=== PATIENT | male | born 1975 | race Caucasian/White ===

== ENCOUNTER 2020-09-15 13:57 | Emergency (ER) | payer MEDICAID ==
[~2020-09-15] VITALS: Ht 175.3 cm; Wt 69.2 kg
[2020-09-15 14:08] VITALS: BP 149/92
[2020-09-15] MEDS ORDERED: PENI500T2 PO (14:54)
[2020-09-16] MEDS ORDERED: NAPR-56 PO (02:30)
== END 2020-09-15 15:56 | disposition home or self-care (01) ==
LOC: ER 13:58
DX: K04.7 Periapical abscess without sinus (principal); K08.89 Other specified disorders of teeth and supporting structures; Z88.8 Allergy status to other drugs, medicaments and biological substances; Z79.2 Long term (current) use of antibiotics
CPT/HCPCS: 99283

== ENCOUNTER 2020-09-16 01:11 | Emergency (ER) | payer MEDICAID ==
[~2020-09-16] VITALS: Ht 190.5 cm; Wt 72.7 kg
[~2020-09-16 01:11] MED LIST: PENI500T2 PO
[2020-09-16] MEDS ORDERED: NAPR-56 PO (02:30)
[2020-09-16] MEDS ORDERED: naproxen 500mg tablet PO ONE (02:40)
[2020-09-16] MEDS ORDERED: amox tr/potassium clavulanate 875/125mg TAB PO ONE (02:40)
[2020-09-16 02:50] VITALS: BP 136/108
== END 2020-09-16 02:51 | disposition home or self-care (01) ==
LOC: ER 01:12
DX: K04.7 Periapical abscess without sinus (principal); K08.89 Other specified disorders of teeth and supporting structures; F17.200 Nicotine dependence, unspecified, uncomplicated; Z76.0 Encounter for issue of repeat prescription; Z88.8 Allergy status to other drugs, medicaments and biological substances; Z79.2 Long term (current) use of antibiotics; Z79.899 Other long term (current) drug therapy
CPT/HCPCS: 99283

== ENCOUNTER 2020-09-19 04:55 | Emergency (ER) | payer MEDICAID, OTHER ==
[~2020-09-19] VITALS: Ht 175.3 cm; Wt 68.0 kg
[~2020-09-19 04:55] MED LIST changes: +NAPR-56 PO
[2020-09-19] MEDS ORDERED: buprenorphine/naloxone 8MG-2MG SUBlingual film SL ONE (05:25)
[2020-09-19 05:49] VITALS: BP 157/77
[2020-09-19] MEDS ORDERED: buprenorphine/naloxone 8MG-2MG SUBlingual film SL SCH (08:00)
== END 2020-09-19 05:59 | disposition home or self-care (01) ==
LOC: ER 04:55
DX: G89.29 Other chronic pain (principal); Z76.0 Encounter for issue of repeat prescription; Z79.2 Long term (current) use of antibiotics; Z79.899 Other long term (current) drug therapy; Z88.8 Allergy status to other drugs, medicaments and biological substances
CPT/HCPCS: 99283

== ENCOUNTER 2020-09-20 02:06 | Emergency (ER) | payer MEDICAID, OTHER ==
[~2020-09-20] VITALS: Ht 175.3 cm; Wt 68.0 kg
[2020-09-20] MEDS ORDERED: buprenorphine/naloxone 8MG-2MG SUBlingual film SL ONE (02:35)
[2020-09-20 02:47] VITALS: BP 159/98
== END 2020-09-20 02:50 | disposition home or self-care (01) ==
LOC: ER 02:07
DX: R07.89 Other chest pain (principal); G89.29 Other chronic pain; F17.200 Nicotine dependence, unspecified, uncomplicated; Z76.0 Encounter for issue of repeat prescription; Z86.19 Personal history of other infectious and parasitic diseases; Z88.8 Allergy status to other drugs, medicaments and biological substances; Z79.2 Long term (current) use of antibiotics; Z79.899 Other long term (current) drug therapy
CPT/HCPCS: 93005; 99283

== ENCOUNTER 2020-09-21 04:47 | Emergency (ER) | payer MEDICAID ==
[~2020-09-21] VITALS: Ht 175.3 cm; Wt 70.0 kg
[2020-09-21] MEDS ORDERED: buprenorphine/naloxone 8MG-2MG SUBlingual film SL ONE ×2 (05:25→05:35)
[2020-09-21] MEDS ORDERED: buprenorphine/naloxone 8MG-2MG SUBlingual film SL SCH (05:25)
[2020-09-21 05:40] VITALS: BP 160/104
[2020-09-22] MEDS ORDERED: CEPH250T PO (02:56)
[2020-09-22] MEDS ORDERED: PENI250T2 PO (03:11)
== END 2020-09-21 05:44 | disposition home or self-care (01) ==
LOC: ER 04:48
DX: F19.239 Other psychoactive substance dependence with withdrawal, unspecified (principal); G89.29 Other chronic pain; Z76.0 Encounter for issue of repeat prescription; Z86.19 Personal history of other infectious and parasitic diseases; Z88.8 Allergy status to other drugs, medicaments and biological substances; Z79.2 Long term (current) use of antibiotics; Z79.899 Other long term (current) drug therapy
CPT/HCPCS: 99283

== ENCOUNTER 2020-09-22 02:41 | Emergency (ER) | payer MEDICAID ==
[~2020-09-22] VITALS: Ht 175.3 cm; Wt 55.4 kg
[2020-09-22] MEDS ORDERED: CEPH250T PO (02:56)
[2020-09-22] MEDS ORDERED: PENI250T2 PO (03:11)
[2020-09-22] MEDS ORDERED: buprenorphine/naloxone 8MG-2MG SUBlingual film SL SCH (03:13)
[2020-09-22 03:30] VITALS: BP 162/95
[2020-09-23] MEDS ORDERED: ONDA4TAB6 PO (03:07)
== END 2020-09-22 03:32 | disposition home or self-care (01) ==
LOC: ER 02:43
DX: F11.23 Opioid dependence with withdrawal (principal); K08.89 Other specified disorders of teeth and supporting structures; F19.239 Other psychoactive substance dependence with withdrawal, unspecified; G89.29 Other chronic pain; Z86.19 Personal history of other infectious and parasitic diseases; Z88.8 Allergy status to other drugs, medicaments and biological substances; Z79.899 Other long term (current) drug therapy; Z79.2 Long term (current) use of antibiotics; Z91.19 Patient's noncompliance with other medical treatment and regimen
CPT/HCPCS: 99283

== ENCOUNTER 2020-09-23 02:32 | Emergency (ER) | payer MEDICAID ==
[~2020-09-23] VITALS: Ht 167.6 cm; Wt 66.8 kg
[~2020-09-23 02:32] MED LIST changes: +CEPH250T PO; +PENI250T2 PO
[2020-09-23 02:37] VITALS: BP 140/92
[2020-09-23] MEDS ORDERED: ONDA4TAB6 PO (03:07)
[2020-09-23] MEDS ORDERED: ondansetron 4mg rapidly disintigrating tab PO ONE (03:10)
[2020-09-23] MEDS ORDERED: buprenorphine/naloxone 8MG-2MG SUBlingual film SL ONE (03:35)
--- NOTE | 2020-09-23 03:45 | NUR ---
PT GIVEN I FILM OF SUBOXONE PRIOR TO DC
[2020-09-23] MEDS ORDERED: buprenorphine/naloxone 8MG-2MG SUBlingual film SL SCH (08:00)
== END 2020-09-23 03:47 | disposition home or self-care (01) ==
LOC: ER 02:32
DX: F11.23 Opioid dependence with withdrawal (principal); G89.29 Other chronic pain; R50.9 Fever, unspecified; Z86.19 Personal history of other infectious and parasitic diseases; Z60.2 Problems related to living alone; Z88.8 Allergy status to other drugs, medicaments and biological substances; Z79.2 Long term (current) use of antibiotics; Z79.899 Other long term (current) drug therapy
CPT/HCPCS: 99283

== ENCOUNTER 2020-09-24 04:35 | Emergency (ER) | payer MEDICAID ==
[~2020-09-24] VITALS: Ht 175.3 cm; Wt 68.0 kg
[~2020-09-24 04:35] MED LIST changes: +ONDA4TAB6 PO
[2020-09-24 04:40] VITALS: BP 190/110
[2020-09-24] MEDS ORDERED: buprenorphine/naloxone 8MG-2MG SUBlingual film SL SCH ×2 (05:00→08:00)
[2020-09-24] MEDS ORDERED: buprenorphine/naloxone 8MG-2MG SUBlingual film SL ONE (05:00)
== END 2020-09-24 05:05 | disposition home or self-care (01) ==
LOC: ER 04:35
DX: F11.23 Opioid dependence with withdrawal (principal); G89.29 Other chronic pain; Z86.19 Personal history of other infectious and parasitic diseases; Z98.890 Other specified postprocedural states; Z60.2 Problems related to living alone; Z88.8 Allergy status to other drugs, medicaments and biological substances; Z79.899 Other long term (current) drug therapy
CPT/HCPCS: 99282

== ENCOUNTER 2020-09-26 00:54 | Emergency (ER) | payer MEDICAID ==
[~2020-09-26] VITALS: Ht 175.3 cm; Wt 70.0 kg
[2020-09-26 01:02] VITALS: BP 144/90
[2020-09-26] MEDS ORDERED: buprenorphine/naloxone 8MG-2MG SUBlingual film SL ONE (01:05)
== END 2020-09-26 01:24 | disposition home or self-care (01) ==
LOC: ER 00:56
DX: F11.23 Opioid dependence with withdrawal (principal); G89.29 Other chronic pain; Z86.19 Personal history of other infectious and parasitic diseases; Z98.890 Other specified postprocedural states; Z60.2 Problems related to living alone; Z88.8 Allergy status to other drugs, medicaments and biological substances; Z79.899 Other long term (current) drug therapy
CPT/HCPCS: 99282

== ENCOUNTER 2020-09-29 22:02 | Emergency (ER) | payer MEDICAID ==
[~2020-09-29] VITALS: Ht 175.3 cm; Wt 66.8 kg
[2020-09-29 22:05] VITALS: BP 152/95
[2020-09-29 22:49] LABS: BASOPHILS % (AUTO) 0.3 % (0-1); EOSINOPHILS # (AUTO) 0.5 X10'3 (0-0.9); HEMATOCRIT 35.3 % (42.0-52.0); HEMOGLOBIN 11.7 g/dl (14.0-17.9); LYMPHOCYTES # (AUTO) 2.8 X10'3 (1.1-4.8); LYMPHOCYTES % (AUTO) 30.5 % (21-51); MEAN CORPUSCULAR HEMOGLOBIN 28.7 PG (27.0-31.0); MEAN CORPUSCULAR HGB CONC 33.1 g/dL (33.0-36.5); MEAN CORPUSCULAR VOLUME 86.7 FL (78-98); MONOCYTES # (AUTO) 1.1 X10'3 (0-0.9); MONOCYTES % (AUTO) 11.7 % (2-12); NEUTROPHILS # (AUTO) 4.9 X10'3 (1.8-7.7); NEUTROPHILS % (AUTO) 52.5 % (42-75); PLATELET COUNT 256 X10'3 (140-440); RED BLOOD COUNT 4.07 X10'6 (4.70-6.10); RED CELL DISTRIBUTION WIDTH 17.6 % (11.5-14.5); WHITE BLOOD COUNT 9.3 X10'3 (4.5-11.0)
[2020-09-29] MEDS ORDERED: buprenorphine/naloxone 8MG-2MG SUBlingual film SL STA (22:58)
[2020-09-29 23:13] LABS: ALANINE AMINOTRANSFERASE 36 U/L (12-78); ALBUMIN 3.2 G/DL (3.4-5.0); ALBUMIN/GLOBULIN RATIO 0.7 (1.1-1.5); ALKALINE PHOSPHATASE 81 IU/L (46-116); ANION GAP 6 (8-16); ASPARTATE AMINO TRANSFERASE 23 U/L (10-37); BILIRUBIN,TOTAL 0.3 MG/DL (0.1-1.0); BLOOD UREA NITROGEN 25 MG/DL (7-18); BUN/CREATININE RATIO 27.5 (5.4-32.0); CALCIUM 8.7 MG/DL (8.5-10.1); CHLORIDE 106 MMOL/L (99-107); CREATININE 0.91 MG/DL (0.60-1.10); GLUCOSE 89 MG/DL (70-104); POTASSIUM 4.1 MMOL/L (3.5-5.1); SODIUM 139 MMOL/L (135-145); TOTAL CARBON DIOXIDE 26.6 MMOL/L (24-32); TOTAL PROTEIN 7.5 G/DL (6.4-8.2); eGFR 90 ML/MIN
[2020-09-30 00:17] LABS: URINE AMPHETAMINE SCREEN NEGATIVE (Neg); URINE BARBITUATE SCREEN NEGATIVE (Neg); URINE BENZODIAZEPINES SCREEN NEGATIVE (Neg); URINE CANNABINOID SCREEN NEGATIVE (Neg); URINE COCAINE SCREEN NEGATIVE (Neg); URINE METHADONE SCREEN NEGATIVE (Neg); URINE OPIATE SCREEN NEGATIVE (Neg); URINE PHENCYCLIDINE SCREEN NEGATIVE (Neg)
== END 2020-09-30 00:32 | disposition home or self-care (01) ==
LOC: ER 22:03
DX: R07.89 Other chest pain (principal); Z76.0 Encounter for issue of repeat prescription; G89.29 Other chronic pain; Z86.19 Personal history of other infectious and parasitic diseases; Z98.890 Other specified postprocedural states; Z79.2 Long term (current) use of antibiotics; Z79.899 Other long term (current) drug therapy; Z88.8 Allergy status to other drugs, medicaments and biological substances
CPT/HCPCS: 36415; 71045; 80053; 80305; 83880; 84484; 85025; 93005; 99285

== ENCOUNTER 2020-10-01 13:21 | Emergency (ER) | payer MEDICAID ==
[~2020-10-01] VITALS: Ht 175.3 cm; Wt 63.5 kg
[~2020-10-01 13:21] MED LIST changes: -CEPH250T PO
[2020-10-01 13:31] VITALS: BP 141/88
== END 2020-10-01 13:52 | disposition home or self-care (01) ==
LOC: ER 13:22
DX: F11.20 Opioid dependence, uncomplicated (principal); Z76.0 Encounter for issue of repeat prescription; G89.29 Other chronic pain; Z98.890 Other specified postprocedural states; Z60.2 Problems related to living alone; Z88.8 Allergy status to other drugs, medicaments and biological substances; Z79.899 Other long term (current) drug therapy
CPT/HCPCS: 99281

== ENCOUNTER 2020-10-06 02:14 | Emergency (ER) | payer MEDICAID ==
[~2020-10-06] VITALS: Ht 175.3 cm; Wt 70.0 kg
[~2020-10-06 02:14] MED LIST changes: -PENI250T2 PO
[2020-10-06 02:32] VITALS: BP 158/106
== END 2020-10-06 04:00 | disposition home or self-care (01) ==
LOC: ER 02:15
DX: Z02.89 Encounter for other administrative examinations (principal); G89.29 Other chronic pain; M54.89 Other dorsalgia; Z59.0 Homelessness; Z86.19 Personal history of other infectious and parasitic diseases; Z98.890 Other specified postprocedural states; Z60.2 Problems related to living alone; Z88.8 Allergy status to other drugs, medicaments and biological substances; Z79.2 Long term (current) use of antibiotics; Z79.899 Other long term (current) drug therapy
CPT/HCPCS: 99282

== ENCOUNTER 2020-10-07 19:42 | Emergency (ER) | payer MEDICAID ==
[~2020-10-07] VITALS: Ht 175.3 cm; Wt 77.3 kg
[2020-10-07 19:58] VITALS: BP 169/103
[2020-10-07] MEDS ORDERED: ondansetron 4mg rapidly disintigrating tab PO ONE (20:20)
== END 2020-10-07 20:48 | disposition home or self-care (01) ==
LOC: ER 19:42
DX: F11.23 Opioid dependence with withdrawal (principal); G89.29 Other chronic pain; Z91.14 Patient's other noncompliance with medication regimen; Z86.19 Personal history of other infectious and parasitic diseases; Z98.890 Other specified postprocedural states; Z60.2 Problems related to living alone; Z88.8 Allergy status to other drugs, medicaments and biological substances; Z79.899 Other long term (current) drug therapy
CPT/HCPCS: 99281

== ENCOUNTER 2020-10-29 03:06 | Emergency (ER) | payer MEDICAID ==
[~2020-10-29] VITALS: Ht 177.8 cm; Wt 75.0 kg
[~2020-10-29 03:06] MED LIST changes: -NAPR-56 PO; -PENI500T2 PO
[2020-10-29 03:21] VITALS: BP 117/93
[2020-10-30 14:42] LABS: OCCULT BLOOD STOOL NEGATIVE (Neg)
== END 2020-10-29 04:24 | disposition home or self-care (01) ==
LOC: ER 03:06
DX: Z02.89 Encounter for other administrative examinations (principal); K40.90 Unilateral inguinal hernia, without obstruction or gangrene, not specified as recurrent; R50.9 Fever, unspecified; R11.0 Nausea; G89.29 Other chronic pain; Z86.19 Personal history of other infectious and parasitic diseases; Z98.890 Other specified postprocedural states; Z60.2 Problems related to living alone; Z88.8 Allergy status to other drugs, medicaments and biological substances; Z79.899 Other long term (current) drug therapy
CPT/HCPCS: 82272; 99283

== ENCOUNTER 2020-11-04 01:15 | Emergency (ER) | payer MEDICAID ==
[~2020-11-04] VITALS: Ht 175.3 cm; Wt 74.0 kg
[2020-11-04 01:21] VITALS: BP 159/98
== END 2020-11-04 01:28 | disposition home or self-care (01) ==
LOC: ER 01:16
DX: K08.89 Other specified disorders of teeth and supporting structures (principal); G89.29 Other chronic pain; F17.200 Nicotine dependence, unspecified, uncomplicated; Z86.19 Personal history of other infectious and parasitic diseases; Z98.890 Other specified postprocedural states; Z60.2 Problems related to living alone; Z88.8 Allergy status to other drugs, medicaments and biological substances; Z79.899 Other long term (current) drug therapy
CPT/HCPCS: 99282

== ENCOUNTER 2020-11-04 23:19 | Emergency (ER) | payer MEDICAID ==
[~2020-11-04] VITALS: Ht 172.7 cm; Wt 65.0 kg
[2020-11-04 23:26] VITALS: BP 170/104
[2020-11-04] MEDS ORDERED: ibuprofen tablet 400 MG TABLET PO ONE (23:35)
[2020-11-04] MEDS ORDERED: ibuprofen 200mg tablet PO ONE (23:35)
== END 2020-11-05 00:02 | disposition home or self-care (01) ==
LOC: ER 23:20
DX: N50.819 Testicular pain, unspecified (principal); G89.29 Other chronic pain; Z86.19 Personal history of other infectious and parasitic diseases; Z98.890 Other specified postprocedural states; Z60.2 Problems related to living alone; Z88.8 Allergy status to other drugs, medicaments and biological substances; Z79.899 Other long term (current) drug therapy
CPT/HCPCS: 99282

== ENCOUNTER 2020-11-06 03:13 | Emergency (ER) | payer MEDICAID ==
[~2020-11-06] VITALS: Ht 175.3 cm; Wt 78.0 kg
[2020-11-06 03:13] VITALS: BP 154/113
[2020-11-06] MEDS ORDERED: ibuprofen tablet 400 MG TABLET PO ONE (03:20)
--- NOTE | 2020-11-06 03:27 | NUR ---
pt went outside, security went out to see if he is there and bring him in for med/dc
[2020-11-07] MEDS ORDERED: IBUP-1984 PO (00:51)
== END 2020-11-06 03:30 | disposition home or self-care (01) ==
LOC: ER 03:13
DX: R10.30 Lower abdominal pain, unspecified (principal); R05 Cough; G89.29 Other chronic pain; Z86.19 Personal history of other infectious and parasitic diseases; Z98.890 Other specified postprocedural states; Z60.2 Problems related to living alone; Z88.8 Allergy status to other drugs, medicaments and biological substances; Z79.899 Other long term (current) drug therapy
CPT/HCPCS: 99282

== ENCOUNTER 2020-11-06 22:55 | Emergency (ER) | payer MEDICAID ==
[~2020-11-06] VITALS: Ht 175.3 cm; Wt 66.5 kg
[2020-11-07] MEDS ORDERED: ibuprofen tablet 400 MG TABLET PO ONE (00:50)
[2020-11-07] MEDS ORDERED: IBUP-1984 PO (00:51)
[2020-11-07 01:03] VITALS: BP 145/95
== END 2020-11-07 01:05 | disposition home or self-care (01) ==
LOC: ER 22:55
DX: K40.90 Unilateral inguinal hernia, without obstruction or gangrene, not specified as recurrent (principal); G89.29 Other chronic pain; Z86.19 Personal history of other infectious and parasitic diseases; Z60.2 Problems related to living alone; Z88.8 Allergy status to other drugs, medicaments and biological substances; Z79.899 Other long term (current) drug therapy
CPT/HCPCS: 99282

== ENCOUNTER 2020-11-11 01:30 | Emergency (ER) | payer MEDICAID ==
[~2020-11-11] VITALS: Ht 176.5 cm; Wt 48.8 kg
[~2020-11-11 01:30] MED LIST changes: +IBUP-1984 PO
--- NOTE | 2020-11-11 01:55 | NUR ---
Pt presents d/t left inguinal pain. Hx mesh repair. Pt [id number], no s/sx of acute distress noted at this time. Pt states "I just need a couple ibuprofen and I'll be fine." Respirations even, unlabored. Will continue to monitor.
[2020-11-11 02:24] VITALS: BP 136/70
== END 2020-11-11 02:26 | disposition home or self-care (01) ==
LOC: ER 01:31
DX: R10.84 Generalized abdominal pain (principal); G89.29 Other chronic pain; Z86.19 Personal history of other infectious and parasitic diseases; Z98.890 Other specified postprocedural states; Z60.2 Problems related to living alone; Z88.8 Allergy status to other drugs, medicaments and biological substances; Z79.899 Other long term (current) drug therapy
CPT/HCPCS: 99281

== ENCOUNTER 2020-11-22 03:45 | Emergency (ER) | payer MEDICAID ==
[~2020-11-22] VITALS: Ht 177.8 cm; Wt 72.7 kg
[2020-11-22 03:52] VITALS: BP 169/96
== END 2020-11-22 05:06 | disposition home or self-care (01) ==
LOC: ER 03:46
DX: H61.23 Impacted cerumen, bilateral (principal); F17.200 Nicotine dependence, unspecified, uncomplicated; G89.29 Other chronic pain; F90.9 Attention-deficit hyperactivity disorder, unspecified type; Z86.19 Personal history of other infectious and parasitic diseases; Z60.2 Problems related to living alone; Z88.8 Allergy status to other drugs, medicaments and biological substances; Z79.899 Other long term (current) drug therapy
CPT/HCPCS: 69209; 99282

== ENCOUNTER 2020-11-23 01:55 | Emergency (ER) | payer MEDICAID ==
[2020-11-24] MEDS ORDERED: FAMO-128 PO (05:04)
== END 2020-11-23 02:28 | disposition left against medical advice (07) ==
LOC: ER 01:56
DX: H92.09 Otalgia, unspecified ear (principal); Z53.21 Procedure and treatment not carried out due to patient leaving prior to being seen by health care provider

== ENCOUNTER 2020-11-23 02:37 | Emergency (ER) | payer MEDICAID ==
[~2020-11-23] VITALS: Ht 175.3 cm; Wt 77.2 kg
[2020-11-23] MEDS ORDERED: acetaminophen 325mg tablet PO ONE (03:15)
[2020-11-23 03:37] VITALS: BP 140/94
[2020-11-24] MEDS ORDERED: FAMO-128 PO (05:04)
== END 2020-11-23 03:46 | disposition home or self-care (01) ==
LOC: ER 02:38
DX: R51.9 Headache, unspecified (principal); H61.23 Impacted cerumen, bilateral; G89.29 Other chronic pain; Z98.890 Other specified postprocedural states; Z60.2 Problems related to living alone; Z88.8 Allergy status to other drugs, medicaments and biological substances; Z79.899 Other long term (current) drug therapy
CPT/HCPCS: 99282

== ENCOUNTER 2020-11-24 04:54 | Emergency (ER) | payer MEDICAID ==
[~2020-11-24] VITALS: Ht 172.7 cm; Wt 63.6 kg
[2020-11-24] MEDS ORDERED: FAMO-128 PO (05:04)
[2020-11-24] MEDS ORDERED: mag hydrox/Alum hydrox/simeth 30ml oral suspension PO ONE ×2 (05:05)
[2020-11-24] MEDS ORDERED: pantoprazole 40mg Tablet.DR PO ONE (05:05)
[2020-11-24] MEDS ORDERED: LIDOcaine Viscous 15ml cup MM ONE (05:05)
[2020-11-24] MEDS ORDERED: famotidine 20mg tablet PO ONE (05:05)
[2020-11-24 05:26] VITALS: BP 126/76
== END 2020-11-24 05:28 | disposition home or self-care (01) ==
LOC: ER 04:55
DX: K21.9 Gastro-esophageal reflux disease without esophagitis (principal); G89.29 Other chronic pain; Z86.19 Personal history of other infectious and parasitic diseases; Z98.890 Other specified postprocedural states; Z60.2 Problems related to living alone; Z88.8 Allergy status to other drugs, medicaments and biological substances; Z79.899 Other long term (current) drug therapy
CPT/HCPCS: 99284

== ENCOUNTER 2020-11-24 21:38 | Emergency (ER) | payer MEDICAID ==
[~2020-11-24] VITALS: Ht 175.3 cm; Wt 77.3 kg
[~2020-11-24 21:38] MED LIST changes: +FAMO-128 PO
[2020-11-24 21:49] VITALS: BP 148/93
[2020-11-24] MEDS ORDERED: mag hydrox/Alum hydrox/simeth 30ml oral suspension PO ONE (23:35)
[2020-11-24] MEDS ORDERED: pantoprazole 40mg Tablet.DR PO SCH (23:35)
[2020-11-24] MEDS ORDERED: LIDOcaine Viscous 15ml cup MM PRN (23:35)
== END 2020-11-24 23:45 | disposition home or self-care (01) ==
LOC: ER 21:39
DX: K21.9 Gastro-esophageal reflux disease without esophagitis (principal); G89.29 Other chronic pain; F17.200 Nicotine dependence, unspecified, uncomplicated; Z98.890 Other specified postprocedural states; Z60.2 Problems related to living alone; Z88.8 Allergy status to other drugs, medicaments and biological substances; Z79.899 Other long term (current) drug therapy
CPT/HCPCS: 99283

== ENCOUNTER 2020-12-10 02:48 | Emergency (ER) | payer MEDICAID ==
[~2020-12-10] VITALS: Ht 177.8 cm; Wt 77.3 kg
[~2020-12-10 02:48] MED LIST changes: -IBUP-1984 PO
[2020-12-10 02:56] VITALS: BP 159/111
== END 2020-12-10 04:08 | disposition left against medical advice (07) ==
LOC: ER 02:49
DX: R10.9 Unspecified abdominal pain (principal); Z53.21 Procedure and treatment not carried out due to patient leaving prior to being seen by health care provider